=== PATIENT | female | born 2000 | race Caucasian/White ===

== ENCOUNTER 2022-05-14 19:06 | Emergency (ER) | payer BC ==
[~2022-05-14] VITALS: Ht 167.6 cm; Wt 100.0 kg
[2022-05-14 19:16] VITALS: TEMP 98.1
[2022-05-14 19:59] LABS: BASO % 0.6 % (0.0-2.0); EOS % 0.3 % (0.0-4.0); GRAN # 4.3 K/mm3 (1.4-6.5); GRAN % 66.6 % (42.2-75.2); HEMATOCRIT 38.7 % (37.0-47.0); HEMOGLOBIN 13.1 g/dl (12.5-16.0); LYMPH # 1.5 K/mm3 (1.2-3.4); LYMPH % 23.6 % (20.0-51.0); MEAN CELL VOLUME 87 fl (80.0-100.0); MEAN CORPUSCULAR HEMOGLOBIN 29 pg (27-31); MEAN CORPUSCULAR HGB CONC 34 g/dl (33.0-37.0); MEAN PLATELET VOLUME 9.6 fl (7.4-10.4); MONO # 0.5 K/mm3 (0.1-0.6); MONO % 8.1 % (1.7-9.3); PLATELET COUNT 348 K/mm3 (130-400); RED BLOOD COUNT 4.46 M/mm3 (4.10-5.30); REDCELL DISTRIBUTION WIDTH-CV 13.8 % (11.5-14.5)
[2022-05-14 20:16] LABS: ALBUMIN 3.8 gm/dL (3.5-5.0); BILIRUBIN,TOTAL 0.6 mg/dL (0.2-1.2); CALCIUM 9.9 mg/dL (8.4-10.2); CREATININE, serum 0.77 mg/dL (0.57-1.11); POTASSIUM 3.8 mmol/L (3.5-4.5); TOTAL PROTEIN 7.5 gm/dL (6.2-8.1)
[2022-05-14] MEDS ORDERED: PREDNISONE20 MG PO (21:15)
[2022-05-14] MEDS ORDERED: CEPHALEXIN500 M1 PO (21:15)
[2022-05-14] MEDS ORDERED: ATARAX 25MG25 MG/TAB PO (21:15)
[2022-05-14] MEDS ORDERED: BACTROBAN 22GM22 GM NAS (21:15)
[2022-05-14 21:28] VITALS: BP 100/76; PULSE 76
== END 2022-05-14 21:29 | disposition home or self-care (01) ==
LOC: COL.ER 19:06
PROVIDERS: Personal Emergency Response Attendant
DX: L01.00 Impetigo, unspecified (principal); T42.6X5A Adverse effect of other antiepileptic and sedative-hypnotic drugs, initial encounter
CPT/HCPCS: J0690; J1200; J2930; J7030